=== PATIENT | female | born 1935 | race Caucasian/White ===

== ENCOUNTER 2022-02-01 21:59 | Emergency (ER) | payer MEDICARE ==
[~2022-02-01] VITALS: Ht 147.3 cm; Wt 45.8 kg
--- NOTE | 2022-02-01 22:06 | NUR ---
PT RAZ ALS. TAKEN TO BED 11
[2022-02-01 22:11] VITALS: BP 118/70
--- NOTE | 2022-02-01 22:33 | NUR ---
Morris vitale in [facility] - 02/01/[address] Constantino examining patient.
--- NOTE | 2022-02-01 22:49 | NUR ---
X-Ray at bedside.
[2022-02-01] MEDS ORDERED: ASPIRIN 81 MG TAB.CHEW PO ONE ×2 (22:50→23:00)
--- NOTE | 2022-02-01 22:50 | NUR ---
Morris vitale in [facility] - 02/01/22 at 2250 by [email or web address] XRAY AT BEDSIDE
--- NOTE | 2022-02-01 22:58 | NUR ---
INVENTORY ANALYST AT BEDSIDE
--- NOTE | 2022-02-01 22:59 | NUR ---
86 Y/O FEMALE BIBA, C/O CP SINCE NOON TODAY. PT STATES HER CP IS SUBSTERNAL, RADIATES TO NECK AND HAS BEEN PROGRESSIVE. PT DESCRIBES PRESSURE 3/10. TOOK PRESCRIBED NITRO X3 W/ LAST DOSE AT 2100 W/ MINOR RELIEF. PT ENCOURAGED TO CALL 911 BY CAREGIVER. PT HAS RECENT DX OF AFIB. PT GIVEN 162 OF CHEWABLE ASA BY MEDICS. HX: HTN AND A-FIB NKA MEDS: NITRO (DOES NOT REMEMBER OTHER MEDS)
[2022-02-01 23:05] LABS: BASOPHILS % (AUTO) 0.5 % (0.0-2.0); EOSINOPHILS % (AUTO) 0.5 % (0.0-4.0); HEMATOCRIT 28.8 % (36-48); HEMOGLOBIN 9.6 g/dL (12.0-16.0); LYMPHOCYTES # (AUTO) 1.2 K/uL (2.5-16.5); LYMPHOCYTES % (AUTO) 13.7 % (20.5-51.1); MEAN CORPUSCULAR HEMOGLOBIN 32 pg (27-31); MEAN CORPUSCULAR HGB CONC 33 g/dL (33-37); MEAN CORPUSCULAR VOLUME 94.4 fL (80-94); MONOCYTES # (AUTO) 0.5 K/uL (0.8-1.0); MONOCYTES % (AUTO) 5.9 % (1.7-9.3); NEUTROPHILS # (AUTO) 6.6 K/uL (1.8-7.7); NEUTROPHILS % (AUTO) 79.4 % (42.2-75.2); PLATELET COUNT (AUTO) 365 K/uL (140-450); RED BLOOD CELL COUNT(AUTO) 3.05 MIL/uL (4.20-5.40); RED CELL DISTRIBUTION WIDTH 15.2 % (11.6-13.7); WHITE BLOOD COUNT (AUTO) 8.4 K/uL (4.8-10.8)
[2022-02-01 23:24] LABS: ALBUMIN 3.7 g/dL (3.4-5.0); ANION GAP 15.7 (8-16); ASPARTATE AMINOTRANSFERASE 20 U/L (15-37); CARBON DIOXIDE 25.1 mmol/L (21-32); CHLORIDE 97 mmol/L (98-107); CREATININE 1.5 mg/dL (0.6-1.3); GLUCOSE 170 mg/dL (74-106); POTASSIUM 4.8 mmol/L (3.5-5.1); SODIUM SERUM 133 mmol/L (136-145); TOTAL BILIRUBIN 0.4 mg/dL (0.0-1.0); UREA NITROGEN, BLOOD 41 mg/dL (7-18)
[2022-02-01 23:26] LABS: LIPASE 157 U/L (73-393)
--- NOTE | 2022-02-01 23:28 | NUR ---
Dr. Constantino examining patient.
[2022-02-01] MEDS ORDERED: NACL 0.9% 500 ML IV ONE (23:35)
[2022-02-01] MEDS ORDERED: DILTIAZEM 25 MG/5 ML VIAL IVP ONE (23:35)
[2022-02-01 23:36] LABS: PROTHROMBIN TIME 11.9 secs (10.8-13.4)
--- NOTE | 2022-02-01 23:52 | NUR ---
patient complaining of jaw pain "that's becoming more severe". ERMD made aware
[2022-02-01] MEDS ORDERED: NITROGLYCERIN 0.4 MG TAB SL ONE (23:55)
[2022-02-01] MEDS ORDERED: ONDANSETRON 4 MG/2 ML VIAL IVP ONE (23:55)
[2022-02-01] MEDS ORDERED: MORPHINE SULFATE 4 MG/ML SYR IVP ONE (23:55)
--- NOTE | 2022-02-02 00:10 | NUR ---
COVID/MARTIN SWAB COLLECTED AND WALKED TO LAB
--- NOTE | 2022-02-02 00:12 | NUR ---
CHIROPRACTIC TEACHER AT BEDSIDE FOR REPEAT TROPONIN
--- NOTE | 2022-02-02 00:15 | NUR ---
PT SIGNED CONSENT FOR TRANSFER
[2022-02-02] MEDS ORDERED: NITR0.4T2 SL (00:28)
[2022-02-02] MEDS ORDERED: CARV6.25 PO (00:28)
[2022-02-02] MEDS ORDERED: ISOS20TA13 PO (00:28)
[2022-02-02] MEDS ORDERED: FURO-572 PO (00:28)
[2022-02-02] MEDS ORDERED: SPIR50TA PO (00:28)
[2022-02-02] MEDS ORDERED: RANEX500 PO (00:28)
[2022-02-02] MEDS ORDERED: METF-350 PO (00:28)
[2022-02-02] MEDS ORDERED: CLOP75TA55 PO (00:28)
[2022-02-02] MEDS ORDERED: APIX5TAB PO (00:28)
[2022-02-02] MEDS ORDERED: PANT40EC PO (00:28)
[2022-02-02 01:23] VITALS: BP 118/54
--- NOTE | 2022-02-02 01:31 | NUR ---
PT MOVED TO ER BED 3
--- NOTE | 2022-02-02 02:56 | NUR ---
Patient to be transferred to [facility] ER. Is being transferred due to insurance purposes. Receiving facility has accepting physician and available space. ER physician has signed transfer form. Patient or responsible democrat has agreed to transfer and signed form. Patient belongings inventoried and will be sent with patient. Copy of nursing notes, lab reports, EKG, Physicians Orders and X-rays to be sent with patient. Report called to Rebecca MUNIZ at receiving facility. [facility] ambulance service has been called for transfer. ETA is 04:45am cigar packer and picker.
--- NOTE | 2022-02-02 03:43 | NUR ---
[facility] TRANSPORT AT BEDSIDE
--- NOTE | 2022-02-02 03:56 | NUR ---
PT TAKEN BY [facility] TO [facility]
== END 2022-02-02 03:56 | disposition short-term general hospital (02) ==
LOC: MED 21:59
DX: I48.20 Chronic atrial fibrillation, unspecified (principal); Z20.822 Contact with and (suspected) exposure to COVID-19; R77.8 Other specified abnormalities of plasma proteins; I10 Essential (primary) hypertension; Z90.49 Acquired absence of other specified parts of digestive tract; Z79.899 Other long term (current) drug therapy
CPT/HCPCS: 36415; 71045; 80053; 83690; 83880; 84484; 85025; 85610; 85730; 87426; 93005; 96361; 96374; 96375; 99285; J2270; J2405; J3490